=== PATIENT | male | born 1975 | race Caucasian/White ===

== ENCOUNTER 2017-12-23 23:22 | Emergency (ER) | payer OTHER ==
[~2017-12-23] VITALS: Ht 172.7 cm; Wt 79.4 kg
[2017-12-24] MEDS ORDERED: HYDROCODONE-AP1 EAC6 PO (00:08)
[2017-12-24] MEDS ORDERED: IBUPROFEN 800800 M1 PO (00:27)
[2017-12-24 00:45] VITALS: BP 143/92
== END 2017-12-24 00:45 | disposition home or self-care (01) ==
LOC: M.ERS 23:22
DX: S62.102A Fracture of unspecified carpal bone, left wrist, initial encounter for closed fracture (principal); W01.0XXA Fall on same level from slipping, tripping and stumbling without subsequent striking against object, initial encounter; Y93.89 Activity, other specified; Y92.89 Other specified places as the place of occurrence of the external cause; Y99.0 Civilian activity done for income or pay